=== PATIENT | female | born 1970 | race Caucasian/White ===

== ENCOUNTER 2021-08-01 12:41 | Outpatient (CLI) | payer BC, SELFPAY ==
--- NOTE | ~2021-08-01 | MR_ITS ---
EXAMINATION: MRI SACRUM W/O CONTRAST DATE: 08/01/2021 14:13 INDICATION: Seronegative arthritis . Sacral pain. TECHNIQUE: Magnetic resonance imaging (MRI) of the sacrum and coccyx was performed without and with 1 5 mL Multihance intravenous contrast. Sequences included sagittal PD-weighted FSE; oblique axial T1- weighted FSE, T2-weighted FS FSE, T1-weighted FS FSE and postcontrast T1-weighted FS FSE; oblique cor onal T2-weighted FSE, T1-weighted FSE, T2-weighted FS FSE and postcontrast T1-weighted FS FSE. COMPARISON: None. FINDINGS: Bone alignment is normal. Normal marrow signal with no fracture or pathologic marrow replacing proces s. Bilateral sacroiliac joints are normal with no erosions or enhancing synovitis to suggest inflamma tory sacroiliitis. Annular fissure and small disc bulge at L4-L5 resulting in mild central canal sten osis. Lumbar facet osteoarthritis, mild bilaterally at L4-L5 and moderate on the right and severe on the left at L5-S1. This contributes to mild neural foraminal stenosis bilaterally at both levels. The uterus is not identified and has likely been surgically resected. Bladder and visualized bowels are unremarkable. No pathologically enlarged pelvic lymphadenopathy. IMPRESSION: 1. Normal bilateral sacroiliac joints. 2. Mild lower lumbar spondylosis. Reviewed, dictated and finalized at location A. DOCTOR
[2021-08-01 13:16] LABS: Estimated Glomerular Filt Rate > 60
== END 2021-08-01 12:42 | disposition home or self-care (01) ==
DX: M47.817 Spondylosis without myelopathy or radiculopathy, lumbosacral region (principal)
CPT/HCPCS: 72197; A9577